=== PATIENT | male | born 1990 | race Caucasian/White ===

== ENCOUNTER → 2016-12-15 | Outpatient (CLI) | payer BC ==
--- NOTE | 2016-12-15 17:55 | RADIOLOGY REPORT (SQ) ---
EXAM DESCRIPTION: U/S THYROID/SFT TISS HD NECK COMPLETED DATE/TIME: 12/15/2016 5:09 pm REASON FOR STUDY: GOITER (E04.9) E04.9 NONTOXIC GOITER, UNSPECIFIED COMPARISON: None. TECHNIQUE: Dynamic and static wilburn-scale images acquired of the thyroid gland. Selected additional c olor/power Doppler images recorded. All images stored to PACS. LIMITATIONS: None. FINDINGS: RIGHT LOBE: Normal size, 4.7 x 3.1 x 2.3 cm. Diffusely heterogeneous. Somewhat lobular c ontour. No cystic or solid masses. LEFT LOBE: Normal size, 4.8 x 2.1 x 1.8 cm. Diffusely heterogeneous. Somewhat lobular contour. No cystic or solid masses. ISTHMUS: 9 mm. Lobular contour. Homogeneous echotexture. No cystic or solid masses. OTHER: No other significant finding. IMPRESSION: The gland is normal in size but diffusely heterogeneous. No definable masses are seen. TECHNICAL DOCUMENTATION: JOB ID: [id number] [employer]- All Rights Reserved
== END ==
LOC: RAD 16:20
PROVIDERS: ATTEND Nurse Practitioner Family
DX: E04.9 Nontoxic goiter, unspecified (principal)
CPT/HCPCS: 76536

== ENCOUNTER → 2017-02-10 | Outpatient (CLI) | payer BC ==
[2017-02-10 19:05] LABS: THYROID STIMULATING HORMONE 32.8 uIU/mL (0.47-4.68)
== END ==
LOC: OD 17:02
PROVIDERS: ATTEND Nurse Practitioner Family
DX: E03.9 Hypothyroidism, unspecified (principal)
CPT/HCPCS: 36415; 84439; 84443